=== PATIENT | female | born 1955 | race Caucasian/White ===

== ENCOUNTER 2018-09-23 07:57 | Day surgery (SDC) | payer OTHER, BC ==
[2018-09-23] MEDS ORDERED: PROPOFOL 20 ML (09:11)
[2018-09-23] MEDS ORDERED: FENTAnyl 50 MCG/ML VIAL (09:11)
[2018-09-23] MEDS ORDERED: ROCURONIUM 50 MG INJ (09:11)
[2018-09-23] MEDS ORDERED: CEFAZOLIN 1 GM INJ (09:11)
[2018-09-23] MEDS ORDERED: MIDAZOLAM 1 MG/ML 2 ML INJ (09:11)
[2018-09-23] MEDS ORDERED: DIPHENHYDRAMINE 50 MG INJ IV (11:00)
[2018-09-23] MEDS ORDERED: ONDANSETRON 4 MG INJ IV ×2 (11:00→13:00)
[2018-09-23] MEDS ORDERED: LABETALOL HCL 20MG INJ IV (11:00)
[2018-09-23] MEDS ORDERED: MEPERIDINE 25 MG INJ IV (11:00)
[2018-09-23] MEDS ORDERED: EPHEDrine SULFATE 50 MG/5 ML SYG IV (11:00)
[2018-09-23] MEDS ORDERED: METOCLOPRAMIDE 10 MG INJ IV (11:00)
[2018-09-23] MEDS ORDERED: HYDROmorphONE 1 MG/5 ML IV SYRINGE IV ×3 (11:00)
[2018-09-23] MEDS ORDERED: FENTAnyl 50 MCG/ML VIAL IV ×3 (11:00)
[2018-09-23] MEDS ORDERED: PHENYLephrine (100 MCG/ML) 10ML SYG (11:07)
[2018-09-23] MEDS ORDERED: KETOROLAC 30 MG INJ (11:21)
[2018-09-23] MEDS ORDERED: ONDANSETRON 4 MG INJ (11:21)
[2018-09-23] MEDS ORDERED: METOCLOPRAMIDE 10 MG INJ (11:21)
[2018-09-23] MEDS ORDERED: EPHEDrine 50 MG INJ (11:21)
[2018-09-23] MEDS ORDERED: DEXAMETHASONE 4 MG/ML 5 ML INJ (11:21)
[2018-09-23] MEDS ORDERED: ROPIVACAINE 0.5 % 30 ML VIAL (11:27)
[2018-09-23] MEDS ORDERED: NEOSTIGMINE 3 MG/3 ML SYRINGE (12:39)
[2018-09-23] MEDS ORDERED: GLYCOPYRROLATE 0.4 MG INJ (12:39)
[2018-09-23] MEDS ORDERED: SOD CHLORIDE 0.9% 1,000 ML IV (12:59)
[2018-09-23] MEDS ORDERED: OXYCODONE/ACETAMINOPHEN (5/325) TAB PO ×2 (13:00)
[2018-09-23] MEDS ORDERED: morphine 2 MG INJ IV (13:00)
[2018-09-23] MEDS: OXYCODONE/ACETAMINOPHEN (5/325) TAB PO (14:35)
== END 2018-09-23 15:30 | disposition home or self-care (01) ==
LOC: SDS 07:57
DX: S83.232D Complex tear of medial meniscus, current injury, left knee, subsequent encounter (principal); S83.282D Other tear of lateral meniscus, current injury, left knee, subsequent encounter; X58.XXXD Exposure to other specified factors, subsequent encounter; M94.262 Chondromalacia, left knee
CPT/HCPCS: 29880